=== PATIENT | female | born 1940 | race Caucasian/White ===

== ENCOUNTER → 2016-06-21 | Outpatient (CLI) | payer MEDICARE, BC, OTHER ==
[~2016-06-21] VITALS: Ht 160 cm; Wt 105.7 kg
[~2016-06-21] MED LIST: CALC600T57 PO; FOLI800C PO; GLIP5TAB8 PO; K-TA10TA2 PO; LIDOCAINE 2% INJ 100 MG/5 ML SDV (FOR ANES.) As Ordered ONE; LOVA40TA PO; MAGN400C2 PO; METF1000 PO; MULTTAB PO; NS 1,000 ML IV SCH; OSTETAB3 PO; PROPOFOL 200 MG/20 ML VIAL As Ordered ONE; TORS10TA3 PO; VITA100072 PO
--- NOTE | 2016-06-21 09:37 | ROOR ---
Patient Name: Ashley Remy Procedure Date: 06/21/2016 9:10 AM Date of : 1940 Age: 76 Room: [facility] Gender: Female Note Status: Finalized Procedure: Colonoscopy to Cecum Indications: Screening for colorectal malignant neoplasm Providers: New Girard MD Referring MD: SAHARA MARIA MD Requesting Provider: Medicines: Monitored Anesthesia Care Complications: No immediate complications. Procedure: Pre-Anesthesia Assessment: - The heart rate, respiratory rate, oxygen saturations, blood pressure, adequacy of pulmonary ventilation, and response to care were monitored throughout the procedure. The Colonoscope was introduced through the anus and advanced to the cecum, identified by appendiceal orifice and ileocecal valve. The colonoscopy was performed without difficulty. The patient tolerated the procedure well. The quality of the bowel preparation was excellent. Findings: The perianal and digital rectal examinations were normal. Non-bleeding internal hemorrhoids were found during retroflexion. The hemorrhoids were small and Grade I (internal hemorrhoids that do not prolapse). No other significant abnormalities were identified in a careful examination of the remainder of the colon. The exam was otherwise without abnormality on direct and retroflexion views. Impression: - Non-bleeding internal hemorrhoids. - The examination was otherwise normal on direct and retroflexion views. - No specimens collected. - The exam was otherwise normal to the cecum. Recommendation: - Discharge patient to home. - Continue present medications. - Repeat colonoscopy for symptoms only. - Return to referring physician. - The findings and recommendations were discussed with the patient's family. New Girard MD New Girard MD 06/21/2016 9:37:05 AM This report has been signed electronically. Number of Addenda: 0 Note Initiated On: 06/21/2016 9:10 AM Estimated Blood Loss: Estimated blood loss: none.
[2016-06-21 09:50] VITALS: BP 180/89
== END | disposition home or self-care (01) ==
LOC: M OPP 08:19
PROVIDERS: ATTEND Internal Medicine Gastroenterology
DX: Z12.11 Encounter for screening for malignant neoplasm of colon (principal); K64.0 First degree hemorrhoids; D69.3 Immune thrombocytopenic purpura; D64.9 Anemia, unspecified; E78.5 Hyperlipidemia, unspecified; I25.10 Atherosclerotic heart disease of native coronary artery without angina pectoris; I50.9 Heart failure, unspecified; E11.9 Type 2 diabetes mellitus without complications; J45.909 Unspecified asthma, uncomplicated; I34.0 Nonrheumatic mitral (valve) insufficiency; R23.3 Spontaneous ecchymoses; R06.83 Snoring; M19.90 Unspecified osteoarthritis, unspecified site; Z88.8 Allergy status to other drugs, medicaments and biological substances; Z91.040 Latex allergy status; Z91.048 Other nonmedicinal substance allergy status; Z79.84 Long term (current) use of oral hypoglycemic drugs; Z79.899 Other long term (current) drug therapy; Z80.41 Family history of malignant neoplasm of ovary
CPT/HCPCS: 99156; 99157; G0121

== ENCOUNTER → 2018-09-07 | Outpatient (CLI) | payer MEDICARE, BC, OTHER ==
[~2018-09-07] MED LIST changes: -LIDOCAINE 2% INJ 100 MG/5 ML SDV (FOR ANES.) As Ordered ONE; -METF1000 PO; +METF10004 PO; -NS 1,000 ML IV SCH; -PROPOFOL 200 MG/20 ML VIAL As Ordered ONE; +VITA100018 PO; -VITA100072 PO
--- NOTE | 2018-09-07 11:59 | REP ---
Facial bone series: Six views. History: Contusion. Findings: The patient is edentulous. There is mild hyperostosis frontalis interna. This is normal variant. No facial fracture is seen. No nasal fracture is noted. Orbital margins appear intact. Impression: No fracture seen. Electronically Signed by Ruben Bruce MD 09/07/2018 11:51 A
== END ==
LOC: M WUC 11:13
PROVIDERS: ATTEND Physician Assistant
DX: S00.83XA Contusion of other part of head, initial encounter (principal); X58.XXXA Exposure to other specified factors, initial encounter; Y92.89 Other specified places as the place of occurrence of the external cause

== ENCOUNTER → 2021-02-11 | Outpatient (CLI) | payer MEDICARE, BC, OTHER ==
--- NOTE | 2021-02-11 12:41 | REPMRS ---
Patient History The patient states she has not had a clinical breast exam in over a year. Patient is postmenopausal and has history of other cancer at age 73. Family history of colorectal cancer at age 50 in maternal uncle, ovarian cancer at age 65 in sister. Benign cyst aspiration of the left breast, 1972. Tomosynthesis is performed. Volpara breast density is b. [facility].7%. Patient states no breast complaints today. Patient has signed MRS History Sheet. Digital Woman Screen Mammo: February 11, 2021 - Exam #: [id number] Bilateral CC and MLO view(s) were taken. Technologist: Justine Palma, Technologist Prior study comparison: October 07, 2019, bilateral digital mammo screening bilat, performed at [facility]. March 28, 2016, bilateral digital mammo screening bilat, performed at [facility]. FINDINGS: There are scattered fibroglandular densities. There has been no change in the appearance of the mammogram from the prior studies. There is a mild amount of residual fibroglandular tissue which is fairly symmetric. There is no interval development of dominant mass, architectural distortion, or clustered microcalcification suggestive of malignancy. Assessment: BI-RADS/ACR category 1 mammogram. Negative Mammogram. Recommendation Routine screening mammogram in 1 year (for women over age 40). This mammogram was interpreted with the aid of an FDA-approved computer-aided dectection system. Electronically Signed By: Vaughn Garcia MD 02/11/21 [id number]
== END ==
LOC: M WHC 11:24
PROVIDERS: ATTEND Family Medicine
DX: Z12.31 Encounter for screening mammogram for malignant neoplasm of breast (principal); Z78.0 Asymptomatic menopausal state

== ENCOUNTER 2024-03-27 19:30 | Inpatient (IN) | payer MEDICARE, BC ==
[~2024-03-27] VITALS: Ht 157.5 cm; Wt 78.3 kg
[~2024-03-27 19:30] MED LIST changes: +GLIP5TAB17 PO; -GLIP5TAB8 PO; -K-TA10TA2 PO; +POTA-165 PO
[2024-03-27 19:54] LABS: VENOUS BASE EXCESS -26.2 (-2.0-2.0); VENOUS PARTIAL PRESSURE CO2 17.5 mmHg (38.0-50.0); VENOUS PARTIAL PRESSURE O2 87.4 mmHg (30.0-50.0); VENOUS PH 6.975 UNITS (7.330-7.430); VENOUS STANDARD HCO3 6.8 MMOL/L; VENOUS TOTAL CO2 4.5 MMOL/L (24.0-28.0)
[2024-03-27 20:00] LABS: HEMATOCRIT 43.8 % (36.0-47.0); HEMOGLOBIN 13.6 g/dl (12.0-15.5); MEAN CORPUSCULAR HEMOGLOBIN 31.1 pg (27.0-33.0); MEAN CORPUSCULAR HGB CONC 31.1 g/dl (32.0-36.5); RED BLOOD COUNT 4.38 10^6/uL (4.00-5.40); WHITE BLOOD COUNT 17.7 10^3/uL (4.0-10.0)
[2024-03-27] MEDS: NS 1,000 ML IV SCH (20:07)
[2024-03-27] MEDS ORDERED: NS 1,000 ML IV SCH (20:10)
[2024-03-27 20:20] LABS: CK-MB VALUE MASS 2.1 NG/ML (<3.6)
[2024-03-27] MEDS: ONDANSETRON 4MG 2ML VIAL IV ONE (20:20)
[2024-03-27] MEDS: LEVALBUTEROL 1.25MG 0.5ML CONCENTRATE NEB NEB ONE (20:20)
[2024-03-27 20:21] LABS: CPK CREATINE PHOSPHOKINASE 39 U/L (34-145); MB/CK RELATIVE INDEX 5.38 (< OR =4)
[2024-03-27 20:22] LABS: HYPOCHROMASIA 1+; LYMPHOCYTES 9 % (16-44); METAMYELOCYTES 4 % (0-0); MONOCYTES 2 % (0-5); MYELOCYTES 5 % (0-0); NEUTROPHILS 77 % (28-66); PLATELET ESTIMATE DECREASED (NORMAL)
[2024-03-27 20:24] LABS: CRENATED RBC 1+; THYROID STIMULATING HORMONE 3.204 uIU/ML (0.55-4.78); THYROXINE (T4) 1.5 UG/DL (4.5-10.9)
[2024-03-27 20:27] LABS: PLATELET COUNT, AUTOMATED 83 10^3/uL (150-450)
[2024-03-27 20:28] LABS: ALBUMIN 3.7 G/DL (3.2-5.2); ALKALINE PHOSPHATASE 80 U/L (35-104); ALT/SGPT 43 U/L (7.0-40); AST/SGOT < 8 U/L (<34); BILIRUBIN,DIRECT 0.2 MG/DL (<0.4); BILIRUBIN,TOTAL 0.6 MG/DL (0.3-1.2); BLOOD UREA NITROGEN 31 MG/DL (9-23); CALCIUM LEVEL 7.8 MG/DL (8.3-10.6); CARBON DIOXIDE LEVEL < 10.0 MMOL/L (20-31); CHLORIDE LEVEL 109 MMOL/L (98-107); CREATININE FOR GFR 0.75 MG/DL (0.55-1.30); GLOMERULAR FILTRATION RATE > 60.0 (>32); GLUCOSE, FASTING 576 MG/DL (74-106); POTASSIUM SERUM 5.1 MMOL/L (3.5-5.1); SODIUM LEVEL 134 MMOL/L (136-145)
[2024-03-27 20:39] LABS: ABG BASE EXCESS -27.1 (-2.0-2.0); ABG HCO3 2.9 MMOL/L (22.0-26.0); ABG O2 SATURATION 98.7 % (95.0-99.0); ABG STANDARD HCO3 6.4 MMOL/L. (22.0-26.0); ABG TOTAL CO2 3.3 MMOL/L (23.0-31.0)
[2024-03-27 20:40] LABS: ABG pH (ARTERIAL) 6.974 UNITS (7.350-7.450)
[2024-03-27] MEDS ORDERED: LORazepam 2 MG/ML 1ML VIAL IV STA (20:42)
[2024-03-27 20:45] LABS: ABG PARTIAL PRESSURE CO2 12.9 mmHg (35.0-45.0)
[2024-03-27 21:03] LABS: LIPASE 43 U/L (12-53)
[2024-03-27 21:08] LABS: C REACTIVE PROTEIN QUANTITATIV < 0.40 MG/DL (<1.0)
[2024-03-27] MEDS ORDERED: INSULIN IV RATE CHANGE DOCUMENTATION ML/HR XX SCH (21:15)
[2024-03-27 21:19] LABS: APPEARANCE, URINE CLEAR (CLEAR); BACTERIA, URINE AUTO 1+ (NEGATIVE); BILIRUBIN, URINE AUTO NEGATIVE (NEGATIVE); BLOOD, URINE BLOOD 1+ (NEGATIVE); COLOR, URINE YELLOW (YELLOW); GLUCOSE, URINE (UA) AUTO 3+ mg/dL (NEGATIVE); KETONE, URINE AUTO 2+ mg/dL (NEGATIVE); LEUKOCYTE ESTERASE, URINE AUTO NEGATIVE (NEGATIVE); MUCUS, URINE SMALL (NEGATIVE); NITRITE, URINE AUTO NEGATIVE (NEGATIVE); PROTEIN, URINE AUTO 2+ mg/dL (NEGATIVE); RBC, URINE AUTO 2 /HPF (0-3); SPECIFIC GRAVITY URINE AUTO 1.023 (1.002-1.035); SQUAMOUS EPITHELIAL CELL UR AU 0 /HPF (0-6); UROBILINOGEN, URINE AUTO 0.2 mg/dL (0.0-2.0); WBC, URINE AUTO 1 /HPF (0-3)
[2024-03-27] MEDS: SODIUM BICARBONATE 8.4% INJ 50ML SYRINGE IV STA (21:35)
[2024-03-27] MEDS: METOPROLOL 5 MG/5 ML VIAL IV STA (21:48)
[2024-03-27] MEDS: LR 2,000 ML IV ONE (21:54)
[2024-03-27 22:01] LABS: MAGNESIUM LEVEL 2.5 MG/DL (1.8-2.4)
[2024-03-27] MEDS: INSULIN REGULAR IN 0.9 % NACL 100 UNIT in IV 1 EA IV SCH (22:30)
[2024-03-27 22:42] LABS: ACETONE/KETONE > 4.50 MMOL/L (0.02-0.27)
[2024-03-27] MEDS ORDERED: ALBUTEROL 90 MCG/ACT 8GM HFA INHALER INH PRN (23:35)
[2024-03-27] MEDS ORDERED: DILT360C22 PO (23:43)
[2024-03-27] MEDS ORDERED: LIOT25TA8 PO (23:43)
[2024-03-27] MEDS ORDERED: DEXA4TA PO (23:43)
[2024-03-27] MEDS ORDERED: ALBU8.5H INH (23:43)
[2024-03-27] MEDS ORDERED: ROSU20TA86 PO (23:43)
[2024-03-27] MEDS ORDERED: METO1TAB32 PO (23:43)
[2024-03-27] MEDS ORDERED: HOME MED LIST COMPLETE! XX SCH (23:45)
[2024-03-28] VITALS (36 sets, daily range): BP systolic 95–162; BP diastolic 53–87; TEMP 96.9–97.4; O2SAT 68–100
[2024-03-28 01:09] LABS: VENOUS BASE EXCESS -22.4 (-2.0-2.0); VENOUS HCO3 6.4 MMOL/L (23.0-27.0); VENOUS O2 SATURATION 82.7 % (60.0-80.0); VENOUS PARTIAL PRESSURE CO2 22.9 mmHg (38.0-50.0); VENOUS PARTIAL PRESSURE O2 57.6 mmHg (30.0-50.0); VENOUS PH 7.061 UNITS (7.330-7.430); VENOUS STANDARD HCO3 8.5 MMOL/L; VENOUS TOTAL CO2 7.1 MMOL/L (24.0-28.0)
[2024-03-28] MEDS: METOPROLOL 5 MG/5 ML VIAL IV STA (01:29)
[2024-03-28 01:39] LABS: OSMOLALITY SERUM 335 MOSM/KG (280-301)
[2024-03-28 01:41] LABS: BLOOD UREA NITROGEN 35 MG/DL (9-23); CALCIUM LEVEL 7.7 MG/DL (8.3-10.6); CARBON DIOXIDE LEVEL < 10.0 MMOL/L (20-31); CHLORIDE LEVEL 109 MMOL/L (98-107); CREATININE FOR GFR 0.72 MG/DL (0.55-1.30); GLOMERULAR FILTRATION RATE > 60.0 (>32); GLUCOSE, FASTING 445 MG/DL (74-106); PHOSPHORUS LEVEL 3.7 MG/DL (2.4-5.1); POTASSIUM SERUM 4.3 MMOL/L (3.5-5.1); SODIUM LEVEL 143 MMOL/L (136-145)
[2024-03-28] MEDS: SODIUM BICARBONATE 8.4% INJ 50ML SYRINGE IV ONE (02:00)
[2024-03-28] MEDS: LR 1,000 ML IV ONE ×3 (02:15→03:45)
[2024-03-28] MEDS: INSULIN REGULAR IN 0.9 % NACL 100 UNIT in IV 1 EA IV SCH (02:41)
[2024-03-28] MEDS: cefTRIAXone SOD 1 GM in DEXTROSE 5% (D5W) ADV/MINI-BAG 50 ML IV SCH (02:51)
[2024-03-28] MEDS: KCL 10MEQ/100ML SWI (KRUN) 10 MEQ in IV 1 EA IV ONE (03:25)
[2024-03-28] MEDS: LR 1,000 ML IV SCH (03:31)
[2024-03-28] MEDS: INSULIN IV RATE CHANGE DOCUMENTATION ML/HR XX SCH (04:00)
[2024-03-28 04:27] LABS: VENOUS HCO3 9.1 MMOL/L (23.0-27.0); VENOUS O2 SATURATION 93.3 % (60.0-80.0); VENOUS PARTIAL PRESSURE CO2 20.7 mmHg (38.0-50.0); VENOUS PARTIAL PRESSURE O2 74.8 mmHg (30.0-50.0); VENOUS PH 7.261 UNITS (7.330-7.430); VENOUS STANDARD HCO3 12.2 MMOL/L; VENOUS TOTAL CO2 9.7 MMOL/L (24.0-28.0)
[2024-03-28] MEDS ORDERED: HEPARIN SOD (PORCINE) 5000UNITS/ML 1ML VIAL/SYRINGE SC SCH (06:00)
[2024-03-28 06:25] LABS: ABG HCO3 12.1 MMOL/L (22.0-26.0); ABG O2 SATURATION 97.9 % (95.0-99.0); ABG PARTIAL PRESSURE O2 150.8 mmHg (75.0-100.0); ABG STANDARD HCO3 16.5 MMOL/L. (22.0-26.0); ABG TOTAL CO2 12.7 MMOL/L (23.0-31.0); ABG pH (ARTERIAL) 7.436 UNITS (7.350-7.450)
[2024-03-28 06:28] LABS: ABG PARTIAL PRESSURE CO2 18.4 mmHg (35.0-45.0)
[2024-03-28 07:30] LABS: BLOOD UREA NITROGEN 31 MG/DL (9-23); CALCIUM LEVEL 7.4 MG/DL (8.3-10.6); CARBON DIOXIDE LEVEL 16 MMOL/L (20-31); CHLORIDE LEVEL 113 MMOL/L (98-107); GLOMERULAR FILTRATION RATE > 60.0 (>32); GLUCOSE, FASTING 144 MG/DL (74-106); POTASSIUM SERUM 3.5 MMOL/L (3.5-5.1); SODIUM LEVEL 143 MMOL/L (136-145)
[2024-03-28] MEDS: dexAMETHasone 4 MG TAB PO SCH (09:00)
[2024-03-28] MEDS: METOPROLOL SUCC *XL* 25MG TAB (TopROL *XL*) PO SCH (09:00)
[2024-03-28] MEDS: dilTIAZem **CD** 180MG CAP PO SCH (09:00)
[2024-03-28] MEDS: POTASSIUM CHLORIDE INJ 40 MEQ in D5W/LR 1,000 ML IV SCH (10:53)
[2024-03-28] MEDS: PANTOPRAZOLE 40MG VIAL IV SCH (10:53)
[2024-03-28] MEDS: LIOTHYRONINE 25 MCG TAB PO SCH (10:53)
[2024-03-28 11:06] LABS: VENOUS BASE EXCESS -6.7 (-2.0-2.0); VENOUS HCO3 18.3 MMOL/L (23.0-27.0); VENOUS O2 SATURATION 78.6 % (60.0-80.0); VENOUS PARTIAL PRESSURE O2 42.5 mmHg (30.0-50.0); VENOUS PH 7.336 UNITS (7.330-7.430); VENOUS STANDARD HCO3 18.6 MMOL/L; VENOUS TOTAL CO2 19.4 MMOL/L (24.0-28.0)
[2024-03-28 11:52] LABS: ALBUMIN 2.8 G/DL (3.2-5.2); BLOOD UREA NITROGEN 30 MG/DL (9-23); CALCIUM LEVEL 7.7 MG/DL (8.3-10.6); CARBON DIOXIDE LEVEL 21 MMOL/L (20-31); CHLORIDE LEVEL 113 MMOL/L (98-107); CREATININE FOR GFR 0.64 MG/DL (0.55-1.30); GLOMERULAR FILTRATION RATE > 60.0 (>32); GLUCOSE, FASTING 65 MG/DL (74-106); MAGNESIUM LEVEL 1.8 MG/DL (1.8-2.4); PHOSPHORUS LEVEL 1.7 MG/DL (2.4-5.1); POTASSIUM SERUM 3.5 MMOL/L (3.5-5.1); SODIUM LEVEL 144 MMOL/L (136-145)
[2024-03-28] MEDS ORDERED: GLUCAGON INJ 1MG VIAL SC PRN (13:10)
[2024-03-28] MEDS ORDERED: GLUCOSE 4 GM CHEW PO PRN (13:10)
[2024-03-28] MEDS ORDERED: DEXTROSE 50% 50ML SYRINGE IV PRN (13:10)
[2024-03-28] MEDS: LEVEMIR (INSULIN DETEMIR) 1 UNITS/0.01ML SC SCH ×2 (13:49→20:33)
[2024-03-28] MEDS: POTASSIUM PHOSPHATE INJ 30 MMOL in D5W 500 ML IV ONE (14:47)
[2024-03-28 17:04] LABS: VENOUS BASE EXCESS -10.1 (-2.0-2.0); VENOUS HCO3 13.2 MMOL/L (23.0-27.0); VENOUS O2 SATURATION 97.2 % (60.0-80.0); VENOUS PARTIAL PRESSURE CO2 22.4 mmHg (38.0-50.0); VENOUS PARTIAL PRESSURE O2 111.8 mmHg (30.0-50.0); VENOUS PH 7.387 UNITS (7.330-7.430); VENOUS STANDARD HCO3 16.4 MMOL/L; VENOUS TOTAL CO2 13.9 MMOL/L (24.0-28.0)
[2024-03-28 17:33] LABS: ALBUMIN 2.5 G/DL (3.2-5.2); BLOOD UREA NITROGEN 25 MG/DL (9-23); CALCIUM LEVEL 7.2 MG/DL (8.3-10.6); CARBON DIOXIDE LEVEL 16 MMOL/L (20-31); CHLORIDE LEVEL 108 MMOL/L (98-107); CREATININE FOR GFR 0.53 MG/DL (0.55-1.30); GLOMERULAR FILTRATION RATE > 60.0 (>32); GLUCOSE, FASTING 315 MG/DL (74-106); PHOSPHORUS LEVEL 4.2 MG/DL (2.4-5.1); POTASSIUM SERUM 4.5 MMOL/L (3.5-5.1); SODIUM LEVEL 137 MMOL/L (136-145)
[2024-03-28] MEDS: INSULIN LISPRO (NovoLOG) PER UNIT SC SCH ×2 (17:34→20:33)
[2024-03-28] MEDS ORDERED: INSULIN LISPRO (NovoLOG) PER UNIT SC SCH (18:00)
[2024-03-28] MEDS: ROSUVASTATIN 10 MG TAB (CRESTOR) PO SCH (20:32)
[2024-03-29] VITALS (26 sets, daily range): BP systolic 98–156; BP diastolic 51–92; TEMP 97.4–98.7; O2SAT 95–100
[2024-03-29] MEDS: ACETAMINOPHEN 325 MG TAB PO PRN (03:30)
[2024-03-29 04:46] LABS: BASO % 0.1 % (0.0-1.0); EOS # 0.1 10^3/uL (0.0-0.5); EOS % 0.7 % (0.0-3.0); HEMATOCRIT 28.8 % (36.0-47.0); LYMPH # 0.8 10^3/uL (1.5-5.0); LYMPH % 8.9 % (24.0-44.0); MEAN CORPUSCULAR HEMOGLOBIN 31.4 pg (27.0-33.0); MEAN CORPUSCULAR HGB CONC 34.4 g/dl (32.0-36.5); MEAN CORPUSCULAR VOLUME 91.4 fl (80.0-96.0); MONO # 1.3 10^3/uL (0.0-0.8); MONO % 14.7 % (2.0-8.0); NEUTROPHILS # 6.7 10^3/uL (1.5-8.5); NEUTROPHILS % 73.5 % (36.0-66.0); RED BLOOD COUNT 3.15 10^6/uL (4.00-5.40); WHITE BLOOD COUNT 9.1 10^3/uL (4.0-10.0)
[2024-03-29 05:21] LABS: HEMOGLOBIN 9.9 g/dl (12.0-15.5); PLATELET COUNT, AUTOMATED 37 10^3/uL (150-450)
[2024-03-29 05:23] LABS: ALBUMIN 2.5 G/DL (3.2-5.2); BLOOD UREA NITROGEN 18 MG/DL (9-23); CALCIUM LEVEL 7.4 MG/DL (8.3-10.6); CARBON DIOXIDE LEVEL 24 MMOL/L (20-31); CHLORIDE LEVEL 111 MMOL/L (98-107); CREATININE FOR GFR 0.53 MG/DL (0.55-1.30); GLOMERULAR FILTRATION RATE > 60.0 (>32); GLUCOSE, FASTING 169 MG/DL (74-106); MAGNESIUM LEVEL 1.8 MG/DL (1.8-2.4); PHOSPHORUS LEVEL 3.3 MG/DL (2.4-5.1); POTASSIUM SERUM 3.5 MMOL/L (3.5-5.1); SODIUM LEVEL 138 MMOL/L (136-145)
[2024-03-29 05:46] LABS: HEMOGLOBIN A1c 10.9 % (4.0-6.0)
[2024-03-29] MEDS: POTASSIUM CHLORIDE 10MEQ SR TABLET PO ONE (08:18)
[2024-03-29] MEDS: LEVEMIR (INSULIN DETEMIR) 1 UNITS/0.01ML SC SCH (08:19)
[2024-03-29] MEDS: METOPROLOL 5 MG/5 ML VIAL IV PRN (10:26)
[2024-03-29] MEDS: METOPROLOL TART 25 MG TABLET PO ONE (10:27)
[2024-03-29] MEDS: dilTIAZem 30 MG TAB PO SCH (11:33)
[2024-03-29] MEDS: MIDODRINE 5 MG TAB PO ONE (13:05)
[2024-03-29] MEDS: DIGOXIN INJ 0.5 MG/2 ML AMP IV STA ×2 (13:06→18:03)
[2024-03-29] MEDS: NS 500 ML IV ONE (13:11)
[2024-03-29] MEDS: DIGOXIN INJ 0.5 MG/2 ML AMP IV ONE (13:12)
[2024-03-29] MEDS: METOPROLOL 5 MG/5 ML VIAL IV STA (15:19)
[2024-03-29] MEDS: NS 1,000 ML IV ONE (18:03)
[2024-03-29] MEDS: atenoloL 50 MG TAB PO ONE (18:08)
[2024-03-30] VITALS (15 sets, daily range): BP systolic 93–130; BP diastolic 54–69; TEMP 97–97.8; O2SAT 94–99
[2024-03-30] MEDS: DIGOXIN INJ 0.5 MG/2 ML AMP IV ONE (01:07)
[2024-03-30 04:38] LABS: C-PEPTIDE 0.59 ng/mL (0.80-3.85)
[2024-03-30 04:40] LABS: BASO % 0.1 % (0.0-1.0); EOS % 0.3 % (0.0-3.0); HEMOGLOBIN 10.8 g/dl (12.0-15.5); LYMPH # 2.7 10^3/uL (1.5-5.0); LYMPH % 37.7 % (24.0-44.0); MEAN CORPUSCULAR HEMOGLOBIN 31.3 pg (27.0-33.0); MEAN CORPUSCULAR HGB CONC 33.8 g/dl (32.0-36.5); MEAN CORPUSCULAR VOLUME 92.8 fl (80.0-96.0); MONO # 0.7 10^3/uL (0.0-0.8); MONO % 10.2 % (2.0-8.0); NEUTROPHILS # 3.6 10^3/uL (1.5-8.5); NEUTROPHILS % 49.7 % (36.0-66.0); PLATELET COUNT, AUTOMATED 32 10^3/uL (150-450); RED BLOOD COUNT 3.45 10^6/uL (4.00-5.40); WHITE BLOOD COUNT 7.2 10^3/uL (4.0-10.0)
[2024-03-30 05:09] LABS: DIGOXIN LEVEL 2.5 NG/ML (0.8-2.0)
[2024-03-30 05:10] LABS: ALBUMIN 2.4 G/DL (3.2-5.2); BLOOD UREA NITROGEN 13 MG/DL (9-23); CALCIUM LEVEL 8.3 MG/DL (8.3-10.6); CARBON DIOXIDE LEVEL 26 MMOL/L (20-31); CHLORIDE LEVEL 109 MMOL/L (98-107); CREATININE FOR GFR 0.49 MG/DL (0.55-1.30); GLOMERULAR FILTRATION RATE > 60.0 (>32); GLUCOSE, FASTING 204 MG/DL (74-106); MAGNESIUM LEVEL 2.1 MG/DL (1.8-2.4); PHOSPHORUS LEVEL 2.7 MG/DL (2.4-5.1); POTASSIUM SERUM 4.2 MMOL/L (3.5-5.1); SODIUM LEVEL 140 MMOL/L (136-145)
[2024-03-30] MEDS: NS 500 ML IV ONE ×2 (08:35→10:20)
[2024-03-30] MEDS: MIDODRINE 5 MG TAB PO ONE (08:35)
[2024-03-30] MEDS: atenoloL 50 MG TAB PO SCH (09:35)
[2024-03-30] MEDS: SENOKOT S TAB PO ONE (12:41)
[2024-03-30] MEDS: LEVEMIR (INSULIN DETEMIR) 1 UNITS/0.01ML SC SCH (20:08)
[2024-03-30] MEDS: MIRALAX *UNIT DOSE* 17GM PACKET PO SCH (20:08)
[2024-03-31] VITALS (25 sets, daily range): BP systolic 82–147; BP diastolic 51–80; TEMP 97–98.9; O2SAT 88–99
[2024-03-31 04:30] LABS: BASO % 0.1 % (0.0-1.0); EOS % 0.1 % (0.0-3.0); HEMATOCRIT 32.7 % (36.0-47.0); HEMOGLOBIN 11.2 g/dl (12.0-15.5); LYMPH # 3.1 10^3/uL (1.5-5.0); LYMPH % 42.4 % (24.0-44.0); MEAN CORPUSCULAR HEMOGLOBIN 31.5 pg (27.0-33.0); MEAN CORPUSCULAR HGB CONC 34.3 g/dl (32.0-36.5); MEAN CORPUSCULAR VOLUME 92.1 fl (80.0-96.0); MONO # 0.8 10^3/uL (0.0-0.8); MONO % 11.1 % (2.0-8.0); NEUTROPHILS # 3.3 10^3/uL (1.5-8.5); NEUTROPHILS % 44.8 % (36.0-66.0); RED BLOOD COUNT 3.55 10^6/uL (4.00-5.40); WHITE BLOOD COUNT 7.3 10^3/uL (4.0-10.0)
[2024-03-31 04:36] LABS: PLATELET COUNT, AUTOMATED 26 10^3/uL (150-450)
[2024-03-31 04:51] LABS: ALBUMIN 2.4 G/DL (3.2-5.2); BLOOD UREA NITROGEN 13 MG/DL (9-23); CALCIUM LEVEL 8.4 MG/DL (8.3-10.6); CARBON DIOXIDE LEVEL 29 MMOL/L (20-31); CHLORIDE LEVEL 108 MMOL/L (98-107); CREATININE FOR GFR 0.43 MG/DL (0.55-1.30); GLOMERULAR FILTRATION RATE > 60.0 (>32); GLUCOSE, FASTING 157 MG/DL (74-106); MAGNESIUM LEVEL 2.1 MG/DL (1.8-2.4); PHOSPHORUS LEVEL 3.6 MG/DL (2.4-5.1); POTASSIUM SERUM 3.6 MMOL/L (3.5-5.1); SODIUM LEVEL 141 MMOL/L (136-145)
[2024-03-31] MEDS: dexAMETHasone 4 MG TAB PO SCH (08:11)
[2024-03-31] MEDS: CEFDINIR 300 MG CAP (OMNICEF) PO SCH (08:11)
[2024-03-31] MEDS: LEVEMIR (INSULIN DETEMIR) 1 UNITS/0.01ML SC SCH (08:12)
[2024-03-31] MEDS: AMIODARONE 150MG/3ML VIAL IVP STA (08:59)
[2024-03-31] MEDS: NS 500 ML IV ONE ×2 (08:59→12:59)
[2024-03-31] MEDS: MIDODRINE 5 MG TAB PO ONE ×2 (09:00→12:59)
[2024-03-31 09:07] LABS: DIGOXIN LEVEL 0.5 NG/ML (0.8-2.0)
[2024-03-31] MEDS: DIGOXIN INJ 0.5 MG/2 ML AMP IV STA (12:59)
[2024-03-31] MEDS: atenoloL 25 MG TAB PO ONE (13:13)
[2024-03-31] MEDS: SENOKOT S TAB PO PRN (13:28)
[2024-03-31] MEDS ORDERED: diltiaZEM 125 MG in NS 100 ML IV SCH (14:00)
[2024-03-31] MEDS: MIDODRINE 5 MG TAB PO SCH (16:37)
[2024-03-31] MEDS: dilTIAZem 30 MG TAB PO SCH (23:35)
[2024-04-01 03:28] VITALS: BP 148/66; TEMP 98.4; O2SAT 97
[2024-04-01 04:18] LABS: HEMATOCRIT 29.1 % (36.0-47.0); HEMOGLOBIN 10.1 g/dl (12.0-15.5); LYMPH # 0.6 10^3/uL (1.5-5.0); LYMPH % 16.4 % (24.0-44.0); MEAN CORPUSCULAR HEMOGLOBIN 31.4 pg (27.0-33.0); MEAN CORPUSCULAR HGB CONC 34.7 g/dl (32.0-36.5); MEAN CORPUSCULAR VOLUME 90.4 fl (80.0-96.0); MONO # 0.3 10^3/uL (0.0-0.8); MONO % 8.8 % (2.0-8.0); NEUTROPHILS # 2.7 10^3/uL (1.5-8.5); NEUTROPHILS % 71.9 % (36.0-66.0); RED BLOOD COUNT 3.22 10^6/uL (4.00-5.40); WHITE BLOOD COUNT 3.8 10^3/uL (4.0-10.0)
[2024-04-01 04:20] LABS: PLATELET COUNT, AUTOMATED 31 10^3/uL (150-450)
[2024-04-01 04:45] LABS: DIGOXIN LEVEL 0.7 NG/ML (0.8-2.0)
[2024-04-01 04:46] LABS: ALBUMIN 2.5 G/DL (3.2-5.2); BLOOD UREA NITROGEN 17 MG/DL (9-23); CALCIUM LEVEL 8.4 MG/DL (8.3-10.6); CARBON DIOXIDE LEVEL 26 MMOL/L (20-31); CHLORIDE LEVEL 106 MMOL/L (98-107); CREATININE FOR GFR 0.38 MG/DL (0.55-1.30); GLOMERULAR FILTRATION RATE > 60.0 (>32); GLUCOSE, FASTING 232 MG/DL (74-106); PHOSPHORUS LEVEL 4.1 MG/DL (2.4-5.1); POTASSIUM SERUM 3.8 MMOL/L (3.5-5.1); SODIUM LEVEL 139 MMOL/L (136-145)
[2024-04-01 08:00] VITALS: BP 153/63; TEMP 98.8; O2SAT 99
[2024-04-01] MEDS: DIGOXIN 0.125 MG TAB PO SCH (08:15)
[2024-04-01 12:00] VITALS: BP 129/63; TEMP 98; O2SAT 98
[2024-04-01] MEDS ORDERED: LANTINJ4 SC (13:26)
[2024-04-01] MEDS ORDERED: PANT40TA29 PO (13:26)
[2024-04-01] MEDS ORDERED: DIGO0.123 PO (13:26)
[2024-04-01] MEDS ORDERED: MIDO5TA PO (13:26)
[2024-04-01] MEDS ORDERED: GLUC1KIT SC (13:37)
[2024-04-01] MEDS ORDERED: INSUHUMDS SC (13:37)
[2024-04-01] MEDS ORDERED: CARD180C4 PO (13:38)
[2024-04-01] MEDS ORDERED: FIAS100I2 SC (16:17)
[2024-04-01] MEDS ORDERED: PEN-61 SC (16:22)
[2024-04-01] MEDS ORDERED: BLOOKIT21 XX (16:22)
[2024-04-01] MEDS ORDERED: PEN-308 SC (16:22)
[2024-04-01] MEDS ORDERED: ALCOPAD25 TOP (16:22)
[2024-04-01] MEDS ORDERED: GLUC1TES2 XX (16:22)
[2024-04-01] MEDS ORDERED: LANC30MI XX (16:22)
[2024-04-01] MEDS ORDERED: INSU1MIS20 SC (16:22)
[2024-04-02] MEDS ORDERED: PANTOPRAZOLE 40MG TAB (PROTONIX) PO SCH (09:00)
[2024-04-03 00:57] LABS: GAD-65 AUTOANTIBODY < 5 IU/mL (<5)
== END 2024-04-01 16:10 | disposition home health service (06) | DRG 871 ==
LOC: M ED 19:30 → M ED INP 22:50 → M ICU 03-28 01:08
PROVIDERS: ADMIT Student in an Organized Health Care Education/Training Program; ATTEND Student in an Organized Health Care Education/Training Program
DX: A41.9 Sepsis, unspecified organism (principal); E11.10 Type 2 diabetes mellitus with ketoacidosis without coma; N39.0 Urinary tract infection, site not specified; D69.3 Immune thrombocytopenic purpura; E87.4 Mixed disorder of acid-base balance; I10 Essential (primary) hypertension; I48.91 Unspecified atrial fibrillation; E78.5 Hyperlipidemia, unspecified; E03.9 Hypothyroidism, unspecified; J45.909 Unspecified asthma, uncomplicated; E66.9 Obesity, unspecified; Z68.33 Body mass index [BMI] 33.0-33.9, adult; Z91.040 Latex allergy status; Z88.8 Allergy status to other drugs, medicaments and biological substances; Z79.899 Other long term (current) drug therapy; Z79.4 Long term (current) use of insulin; Z96.652 Presence of left artificial knee joint

== ENCOUNTER → 2024-11-11 | Outpatient (CLI) | payer MEDICARE, BC ==
[~2024-11-11] MED LIST changes: +ALBU8.5H INH; +ALCOPAD25 TOP; +BLOOKIT21 XX; +CARD180C4 PO; +DEXA4TA PO; +DIGO0.123 PO; +DILT360C22 PO; +FIAS100I2 SC; +GLUC1TES2 XX; +GLUC1VIA14 SC; +INSU1MIS20 SC; +INSUHUMDS SC; +LANC30MI XX; +LANTINJ4 SC; +LIOT25TA8 PO; +METO1TAB32 PO; +MIDO5TA PO; +PANT40TA29 PO; +PEN-308 SC; +PEN-61 SC; +ROSU20TA86 PO
== END ==
LOC: M WHC 10:58
PROVIDERS: ATTEND Student in an Organized Health Care Education/Training Program
DX: Z13.820 Encounter for screening for osteoporosis (principal); M85.89 Other specified disorders of bone density and structure, multiple sites